=== PATIENT | female | born 1970 | race Caucasian/White ===

== ENCOUNTER 2022-03-15 08:42 | Inpatient (IN) ==
[2022-03-15] MEDS ORDERED: Ondansetron 4 MG/2 ML VIAL IVP PRN ×4 (10:28→18:50)
[2022-03-15] MEDS ORDERED: Naloxone 0.4 MG/ML INJ IVP PRN ×4 (10:28→18:50)
[2022-03-15] MEDS: Ketorolac 30 MG/ML VIAL IVP SCH (13:28)
[2022-03-15] MEDS: Ringers Solution, Lactated 1,000 ML IVC SCH ×2 (13:28→19:21)
[2022-03-15] MEDS ORDERED: *HR* Propofol 200 MG/20 ML VIAL IVP ONE ×2 (15:06→18:02)
[2022-03-15] MEDS ORDERED: *HR* FentaNYL (PF) 100 MCG/2 ML VIAL ONE ×2 (15:06→16:18)
[2022-03-15] MEDS ORDERED: *HR* HYDROmorphone PF 0.5 MG/0.5 ML SYRINGE IVP PRN ×2 (15:25→18:50)
[2022-03-15] MEDS ORDERED: Albuterol 2.5 MG/3 ML NEBULIZER IH PRN ×2 (15:25→18:50)
[2022-03-15] MEDS ORDERED: Acetaminophen IV 1,000 MG/100 ML BAG IVPB ONE (15:25)
[2022-03-15] MEDS ORDERED: Dexmedetomidine HCl 400 MCG/100 ML MLS IVC ONE (15:27)
[2022-03-15] MEDS ORDERED: CefOXitin 1,000 MG VIAL ONE (15:34)
[2022-03-15] MEDS ORDERED: *HR* Midazolam HCl 2 MG/2 ML VIAL ONE (15:42)
[2022-03-15] MEDS ORDERED: CefOXitin 2,000 MG VIAL ONE (16:12)
[2022-03-15] MEDS ORDERED: *HR* Rocuronium Bromide 50 MG/5 ML VIAL ONE ×3 (16:49→17:16)
[2022-03-15] MEDS ORDERED: *HR* Succinylcholine 200 MG/10 ML VIAL IVP ONE (16:49)
[2022-03-15] MEDS ORDERED: Lidocaine -MPF 2% 2 ML VIAL ONE (16:49)
[2022-03-15] MEDS ORDERED: Ondansetron 4 MG/2 ML VIAL ONE (17:51)
[2022-03-15] MEDS ORDERED: *HR* HYDROMORPHONE 2 MG/ML VIAL ONE (18:19)
[2022-03-15] MEDS: *HR* HYDROmorphone (PF) 1 MG/ML SYRINGE IVP PRN ×2 (19:23→21:33)
[2022-03-16] MEDS: *HR* HYDROmorphone (PF) 1 MG/ML SYRINGE IVP PRN ×7 (00:02→19:54)
[2022-03-16] MEDS: Ketorolac 30 MG/ML VIAL IVP SCH ×5 (00:03→23:13)
[2022-03-16 01:26] LABS: Basophils % 0.2 %; Eosinophils % 0.1 %; Hematocrit 39.5 % (35.3-44.9); Hemoglobin 13.3 g/dL (11.5-15.4); Immature Granulocytes % 0.3 % (0-4); Lymphocytes # 0.5 K/mcL (0.6-4.6); Mean Corpuscular HGB Conc 33.7 g/dL (31.6-35.5); Mean Corpuscular Hemoglobin 29.4 pg (28.0-33.3); Mean Corpuscular Volume 87.4 fL (83.0-100.0); Mean Platelet Volume 9.2 fL (9.4-12.4); Monocytes # 0.1 K/mcL (0.0-1.3); Neutrophils # 9.8 K/mcL (1.6-8.9); Platelet Count 255 K/mcL (140-400); Red Blood Count 4.52 M/mcL (3.82-4.97); Segmented Neutrophils % 93.4 %; White Blood Count 10.5 K/mcL (4.3-11.1)
[2022-03-16 01:42] LABS: BUN/Creatinine Ratio 24 (6-26); Blood Urea Nitrogen 18 mg/dL (6-20); Carbon Dioxide 28 mEq/L (23-29); Chloride 103 mEq/L (98-107); Glucose 132 mg/dL (70-105); Magnesium 1.9 mg/dL (1.6-2.6); Osmolality,Calculated 288 (280-300); Phosphorous 2.7 mg/dL (2.7-4.5); Sodium 137 mEq/L (136-145)
[2022-03-16] MEDS: Ringers Solution, Lactated 1,000 ML IVC SCH ×2 (06:07→10:06)
[2022-03-16] MEDS ORDERED: Methadone Oral Concentrate 50 MG/5 ML UDC PO SCH (09:45)
[2022-03-16] MEDS ORDERED: Chloraseptic Spray 177 ML BOTTLE MM PRN (10:54)
[2022-03-17 02:16] LABS: Basophils # 0.1 K/mcL (0.0-0.2); Basophils % 0.7 %; Eosinophils # 0.1 K/mcL (0.0-0.6); Eosinophils % 1.7 %; Hematocrit 35.4 % (35.3-44.9); Immature Granulocytes % 0.4 % (0-4); Lymphocytes # 1.7 K/mcL (0.6-4.6); Lymphocytes % 20.8 %; Mean Corpuscular HGB Conc 32.5 g/dL (31.6-35.5); Mean Corpuscular Hemoglobin 29.4 pg (28.0-33.3); Mean Corpuscular Volume 90.5 fL (83.0-100.0); Mean Platelet Volume 9.4 fL (9.4-12.4); Monocytes # 0.6 K/mcL (0.0-1.3); Monocytes % 6.7 %; Neutrophils # 5.8 K/mcL (1.6-8.9); Platelet Count 240 K/mcL (140-400); Red Blood Count 3.91 M/mcL (3.82-4.97); Red Cell Distribution Width 12.6 % (11.5-14.5); Segmented Neutrophils % 69.7 %; White Blood Count 8.3 K/mcL (4.3-11.1)
[2022-03-17 02:20] LABS: Hemoglobin 11.5 g/dL (11.5-15.4)
[2022-03-17 02:38] LABS: BUN/Creatinine Ratio 37 (6-26); Blood Urea Nitrogen 26 mg/dL (6-20); Calcium 8.8 mg/dL (8.6-10.3); Carbon Dioxide 32 mEq/L (23-29); Chloride 102 mEq/L (98-107); Glucose 83 mg/dL (70-105); Osmolality,Calculated 294 (280-300); Sodium 140 mEq/L (136-145)
[2022-03-17] MEDS: *HR* HYDROmorphone (PF) 1 MG/ML SYRINGE IVP PRN ×2 (04:05→18:59)
[2022-03-17] MEDS: Ketorolac 30 MG/ML VIAL IVP SCH ×4 (05:24→20:05)
[2022-03-17] MEDS ORDERED: Ondansetron 4 MG/2 ML VIAL IVP PRN (06:44)
[2022-03-17] MEDS ORDERED: Naloxone 0.4 MG/ML INJ IVP PRN (06:44)
[2022-03-17] MEDS: Ringers Solution, Lactated 1,000 ML IVC SCH (16:45)
[2022-03-18] MEDS: Ketorolac 30 MG/ML VIAL IVP SCH ×5 (00:12→23:49)
[2022-03-18] MEDS: *HR* HYDROmorphone (PF) 1 MG/ML SYRINGE IVP PRN ×2 (04:13→07:10)
[2022-03-18 06:14] LABS: Basophils # 0.1 K/mcL (0.0-0.2); Basophils % 0.9 %; Eosinophils # 0.2 K/mcL (0.0-0.6); Eosinophils % 3.4 %; Hematocrit 35.2 % (35.3-44.9); Hemoglobin 11.8 g/dL (11.5-15.4); Immature Granulocytes % 0.3 % (0-4); Lymphocytes # 1.1 K/mcL (0.6-4.6); Mean Corpuscular HGB Conc 33.5 g/dL (31.6-35.5); Mean Corpuscular Hemoglobin 29.6 pg (28.0-33.3); Mean Corpuscular Volume 88.4 fL (83.0-100.0); Mean Platelet Volume 9.2 fL (9.4-12.4); Monocytes # 0.4 K/mcL (0.0-1.3); Monocytes % 5.8 %; Neutrophils # 4.7 K/mcL (1.6-8.9); Platelet Count 240 K/mcL (140-400); Red Blood Count 3.98 M/mcL (3.82-4.97); Red Cell Distribution Width 11.9 % (11.5-14.5); Segmented Neutrophils % 72.6 %; White Blood Count 6.5 K/mcL (4.3-11.1)
[2022-03-18 06:25] LABS: BUN/Creatinine Ratio 37 (6-26); Blood Urea Nitrogen 22 mg/dL (6-20); Calcium 8.7 mg/dL (8.6-10.3); Carbon Dioxide 31 mEq/L (23-29); Chloride 102 mEq/L (98-107); Glucose 77 mg/dL (70-105); Osmolality,Calculated 290 (280-300); Phosphorous 2.2 mg/dL (2.7-4.5); Potassium 3.5 mEq/L (3.5-5.1); Sodium 139 mEq/L (136-145)
[2022-03-18] MEDS: Ringers Solution, Lactated 1,000 ML IVC SCH (07:00)
[2022-03-18] MEDS: Methadone Oral Concentrate 50 MG/5 ML UDC PO SCH (11:44)
[2022-03-18] MEDS: *HR* HYDROcodone/Acet 5/325 mg TABLET PO PRN (19:43)
[2022-03-19] MEDS: *HR* HYDROcodone/Acet 5/325 mg TABLET PO PRN ×5 (03:11→22:17)
[2022-03-19 03:34] LABS: Hematocrit 35.8 % (35.3-44.9); Mean Corpuscular HGB Conc 33.5 g/dL (31.6-35.5); Mean Corpuscular Hemoglobin 29.3 pg (28.0-33.3); Mean Corpuscular Volume 87.5 fL (83.0-100.0); Mean Platelet Volume 9.3 fL (9.4-12.4); Platelet Count 259 K/mcL (140-400); Red Blood Count 4.09 M/mcL (3.82-4.97); White Blood Count 7.3 K/mcL (4.3-11.1)
[2022-03-19 03:48] LABS: BUN/Creatinine Ratio 19 (6-26); Blood Urea Nitrogen 12 mg/dL (6-20); Calcium 8.9 mg/dL (8.6-10.3); Carbon Dioxide 30 mEq/L (23-29); Chloride 103 mEq/L (98-107); Glucose 98 mg/dL (70-105); Magnesium 1.8 mg/dL (1.6-2.6); Osmolality,Calculated 288 (280-300); Potassium 3.3 mEq/L (3.5-5.1); Sodium 139 mEq/L (136-145)
[2022-03-19] MEDS: Methadone Oral Concentrate 50 MG/5 ML UDC PO SCH (07:40)
[2022-03-19] MEDS ORDERED: Magnesium Sulfate 1 GM/102 ML PIGGYBACK IVPB ONE (15:46)
[2022-03-20] MEDS: *HR* HYDROcodone/Acet 5/325 mg TABLET PO PRN ×2 (03:36→09:02)
[2022-03-20 04:31] LABS: BUN/Creatinine Ratio 19 (6-26); Blood Urea Nitrogen 13 mg/dL (6-20); Calcium 9.2 mg/dL (8.6-10.3); Carbon Dioxide 29 mEq/L (23-29); Chloride 102 mEq/L (98-107); Glucose 88 mg/dL (70-105); Osmolality,Calculated 290 (280-300); Potassium 3.5 mEq/L (3.5-5.1); Sodium 140 mEq/L (136-145)
[2022-03-20 07:17] VITALS: BP 158/103; PULSE 64; TEMP 97.8; O2SAT 96
[2022-03-20] MEDS: Methadone Oral Concentrate 50 MG/5 ML UDC PO SCH (07:24)
== END 2022-03-20 13:48 | disposition home or self-care (01) | DRG 227 ==
LOC: 3BNU 10:04 → SUATTDRO 10:04 → INTOOBSV 10:04 → ICNU 17:38 → 2NENU 23:54
PROVIDERS: ADMIT Internal Medicine; ATTEND Internal Medicine